=== PATIENT | male | born 2000 | race Caucasian/White ===

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

== ENCOUNTER 2020-06-12 15:00 | Emergency (ER) | payer BC ==
[~2020-06-12] VITALS: Ht 190.5 cm; Wt 75.0 kg
[~2020-06-12 15:00] MED LIST changes: -NO HOME MEDS; +TRAZ-251 PO
[2020-06-12] MEDS ORDERED: IBUP-1984 PO (16:26)
[2020-06-12 16:46] VITALS: BP 140/60
== END 2020-06-12 16:48 | disposition home or self-care (01) ==
LOC: ER 15:01
DX: S00.81XA Abrasion of other part of head, initial encounter (principal); F07.81 Postconcussional syndrome; Z79.899 Other long term (current) drug therapy; X58.XXXA Exposure to other specified factors, initial encounter; Y93.89 Activity, other specified; Y92.89 Other specified places as the place of occurrence of the external cause; Y99.8 Other external cause status
CPT/HCPCS: 70450; 70486; 72125; 99285